=== PATIENT | female | born 1955 | race Hispanic/Latino ===

== ENCOUNTER 2016-06-11 22:02 | Emergency (ER) ==
[2016-06-11] MEDS ORDERED: NITROGLYCERIN SL PRN (22:40)
[2016-06-11] MEDS ORDERED: ASPIRIN PO STA (22:40)
[2016-06-11 22:51] LABS: MANUAL DIFF NEEDED? NO
[2016-06-11 22:55] LABS: BASO% 0.3 % (0.0-0.8); EOS# 0.18 X1000 (0.0-0.7); HEMATOCRIT 39.9 % (37.0-47.0); HEMOGLOBIN 12.9 g/dL (12.0-16.0); LYMPH# 4.24 X1000 (1.2-3.4); LYMPH% 47.1 % (20.5-51.1); MCH 24.5 PG (27-31); MCHC 32.3 g/dL (33-37); MCV 75.7 FL (81-99); MONO# 0.59 X1000 (0.11-0.59); MONO% 6.6 % (1.7-9.3); MPV 10.6 FL (7.4-10.4); PLT 218 X1000 (130-400); RBC 5.27 XMIL (4.2-5.4)
[2016-06-11 23:04] LABS: INR 1.01; PROTIME 10.7 Seconds (9.2-11.7); PTT 26.8 Seconds (22.0-36.0)
[2016-06-11 23:14] LABS: AGAP 14; ALBUMIN 3.9 g/dL (3.5-5.0); ALKALINE PHOSPHATASE 71 U/L (32-104); BUN 14 mg/dL (8-22); CALCIUM 9.3 mg/dL (8.8-10.2); CHLORIDE 104 mmol/L (98-107); CK PROFILE 95 U/L (24-173); COSMO 286; GOT 37 U/L (10-30); GPT 47 U/L (10-36); POTASSIUM 3.8 mmol/L (3.5-5.1); SODIUM 142 mmol/L (136-145); TCO2 24 mmol/L (25-35); TOTAL PROTEIN 6.9 g/dL (6.3-8.3)
[2016-06-11 23:53] VITALS: BP 141/78
--- NOTE | 2016-06-11 23:57 | PROVIDER DOCUMENTATION ---
Addendum entered and electronically signed by Jasmin Rodarte Scribe 06/12/16 00: 09: EKG Interpretation - EKG Time of EKG reading by physician:: 22:24 EKG Read and Signed by:: Sai Bob EKG Interpretation (*Must complete 3 of following elements*): Abnormal Rate: 77 Rhythm: NSR QRS: LBB Original Note: HPI-General Adult - General Chief Complaint: B/P Problems Stated Complaint: HIGH BP Time Seen by Provider: 06/11/16 23:43 Source: patient Allergies/Adverse Reactions: Patient Allergies Allergy/AdvReac Type Severity Reaction Status Date / Time No Known Allergies Allergy Verified 06/11/16 22:16 Home Medications: Home Medication List Medication Instructions Recorded Confirmed Last Taken Type Atenolol 1 tab PO DAILY 05/28/15 06/11/16 06/11/16 History Calcium Carb/Vitamin D3/Vit K1 1 tab PO DAILY 05/28/15 06/11/16 06/11/16 History [Calcium + D Soft Chewable Tab] Levothyroxine [Synthroid] 100 mcg PO DAILY 05/28/15 06/11/16 06/11/16 History Milk Thistle 200 mg PO DAILY 05/28/15 06/11/16 06/11/16 History [place]-3 Fatty Acids [Fish Oil] 1 cap PO DAILY 05/28/15 06/11/16 06/11/16 History Lorazepam [Ativan] 0.5 mg PO PRN PRN 06/11/16 06/11/16 06/11/16 History - History of Present Illness -Gen Adult Location of Pain/Injury: reports: head. denies: face, mouth, neck, chest, upper extremity, hand(s), abdomen, back, pelvis, genitalia, lower extremity, feet, upper body, lower body, generalized Pain Radiation: reports: no radiation Quality of Pain: reports: aching. denies: burning, cramping, dull, fullness, indigestion, pressure, sharp, stabbing, tearing, throbbing, tightness Severity: reports: moderate. denies: mild, severe Onset/Duration: reports: abrupt, 1-3 hours ago Timing: reports: gone now. denies: still present, improving, resolved prior to arrival, intermittent, constant, changing over time, getting worse Context/Activities at Onset: reports: none. denies: recent emotional stress, recent physical stress, recent trauma history, possible bad food, cold exposure , out of country travel Modifying Factors: improves with: nothing Associated Symptoms: reports: anxiety, headaches. denies: arm pain, back/neck pain, chest pain, constipation, cough, diaphoresis, diarrhea, dizziness, EENT symptoms, fatigue, fever/chills, genitourinary problems, heartburn, joint pain, loss of appetite, malaise, muscle aches, sinus congestion/drainage, nausea, rash , seizure, shortness of breath, sensory/motor loss, pain with inspiration, swelling/mass in abdomen, syncope, vomiting, weakness, trouble walking Similar Symptoms Previously?: Yes Recently seen or treated by another doctor?: No Review of Systems - Adult - REVIEW OF SYSTEMS - ADULT Constitutional: reports: see HPI. denies: chills, fever, fatique Eyes: reports: see HPI. denies: discharge, blurred vision, double vision Ears, Nose, Mouth & Throat: reports: see HPI. denies: ear discharge, ear pain, hearing loss, sinus problem, nose pain, loose teeth, mouth/dental pain, throat pain, throat swelling Cardiovascular: reports: see HPI. denies: chest pain, irregular heart rate, orthopnea, palpitations, syncope Respiratory: reports: see HPI. denies: chronic cough, cough, dyspnea on exertion, hemoptysis, shortness of breath, wheezing Gastrointestinal: reports: see HPI. denies: abdominal pain, hematemesis, diarrhea, nausea, vomiting Genitourinary: reports: see HPI. denies: dysuria, hematuria, hesitency, urgency Musculoskeletal: reports: see HPI. denies: bone pain, joint pain, joint swelling, neck pain Integumentary: reports: see HPI. denies: hives, itching, rash, skin thickening Neurological: reports: see HPI, headache/migraines. denies: ataxia, numbness, seizure, tremors Psychiatric: reports: see HPI, anxiety. denies: depression, emotional problems , insomnia, panic attacks, suicidal thoughts Past History - Adult - PAST MEDICAL HISTORY-ADULT Review of Records: reports: Old Records Reviewed, Nursing Assessment Review, Medications Reviewed, Social history reviewed & non-contributory. - IMMUNIZATION STATUS Childhood Immunizations: See Nurse Assessment Flu Vaccine: See Nurse Assessment - FAMILY HISTORY Family History: reviewed, not pertinent - SOCIAL HISTORY Smoking: non-smoker Physical Exam-General - PHYSICAL EXAM-ADULT Initial Vital Signs Reviewed: Yes - CONSTITUTIONAL General Appearance: alert, mild distress, thin, anxious. negative: obese, lethargic, slow to respond, obtunded, combative - EYES Eyes: PERRL/EOMI, pink conjunctivae. negative: conjuctival exudate, subconjunctival hemorrhage, sunken eyes - HEAD, EARS, NOSE, MOUTH & THROAT HENMT: normocephalic/atraumatic, moist mucous membranes. negative: angioedema, frontal tenderness, maxillary tenderness - NECK Neck: non-tender, full range of motion, supple, normal inspection. negative: lymphadenopathy, trachial deviation, thyromegaly - RESPIRATORY Respiratory: lungs clear, normal breath sounds. negative: crackles, rales, rhonchi, stridor, wheezing - CARDIOVASCULAR Cardiovascular: normal peripheral pulses, regular rate, rhythm, no edema, no JVD , no murmur. negative: extra beats, friction rub, irregularly irregular - CHEST (BREASTS) Chest/Breast: deferred - GASTROINTESTINAL (ABDOMEN) Abdominal Exam: normal bowel sounds, non tender, soft. negative: distended, guarding, rigid, rebound, tenderness, hernia, mass - GENITOURINARY Female Genitalia/Pelvic Exam: deferred Rectal Exam: deferred Hemoccult Exam: deferred - LYMPHATIC Lymphatic: no adenopathy. negative: axilla node tender, cervical node tenderness - MUSCULOSKELETAL Back Exam: normal inspection, no CVA tenderness, no vertebral tenderness. negative: ecchymosis, scoliosis, swelling, vertebral tenderness Extremity: normal range of motion, non-tender, normal gait, normal inspection. negative: deformity, erythema, inflammation, swelling, tenderness Peripheral Pulses: radial (R): 2+, radial (L): 2+ - SKIN Integumentary: normal color, normal turgor, warm/dry. negative: cyanosis, diaphoresis, ecchymosis, erythema, jaundice, mottled, pallor, petechiae, purpura , rash, swelling, tenderness - NEUROLOGIC Neurologic: grossly normal, no motor/sensory deficits. negative: aphasia, facial droop, focal weakness, motor weakness, sensory deficit - PSYCHIATRIC Psych/Mental Status: normal mood/affect, normal thought content, normal thought process, oriented x 3, anxious. negative: paranoid, tearful Progress - PLAN OF CARE/RESULTS Progress/Plan/Lab Results: Discussed results and plan of care with patient. Patient agrees with plan and verbalizes understanding. Vital Signs Temp Pulse Resp BP Pulse Ox 06/11/16 23:53 59 L 18 141/78 100 06/11/16 22:10 97.6 F 90 17 188/85 99 No Known Allergies Allergy (Verified 06/11/16 22:16) Atenolol 1 tab PO DAILY 05/28/15 Calcium Carb/Vitamin D3/Vit K1 [Calcium + D Soft Chewable Tab] 1 tab PO DAILY Levothyroxine [Synthroid] 100 mcg PO DAILY 05/28/15 Milk Thistle 200 mg PO DAILY 05/28/15 [place]-3 Fatty Acids [Fish Oil] 1 cap PO DAILY 05/28/15 Lorazepam [Ativan] 0.5 mg PO PRN PRN 06/11/16 Laboratory 06/11/16 06/11/16 06/11/16 22:35 22:35 22:35 WBC RBC Hgb Hct MCV MCH MCHC RDW Std Deviation Plt Count MPV Immature Gran % (Auto) Neut % (Auto) Lymph % (Auto) Wise % (Auto) Eos % (Auto) Baso % (Auto) Immature Gran # (Auto) Neut # (Auto) Lymph # (Auto) Wise # (Auto) Eos # (Auto) Baso # (Auto) PT 10.7 INR 1.01 PTT (Actin FS) 26.8 D-Dimer Sodium Potassium Chloride Carbon Dioxide Anion Gap BUN Creatinine Estimated GFR/1.73 m2 BUN/Creatinine Ratio Glucose Calculated Osmolality Calcium Magnesium Total Bilirubin AST ALT Alkaline Phosphatase Creatine Kinase Troponin T < 0.010 Oat-L-Vdwgpzflvon Pept 52 Total Protein Albumin Globulin Albumin/Globulin Ratio 06/11/16 06/11/16 06/11/16 22:35 22:35 22:35 WBC 9.00 RBC 5.27 Hgb 12.9 Hct 39.9 MCV 75.7 L MCH 24.5 L MCHC 32.3 L RDW Std Deviation 14.7 H Plt Count 218 MPV 10.6 H Immature Gran % (Auto) 0.0 Neut % (Auto) 44.0 Lymph % (Auto) 47.1 Wise % (Auto) 6.6 Eos % (Auto) 2.0 Baso % (Auto) 0.3 Immature Gran # (Auto) 0.00 Neut # (Auto) 3.96 Lymph # (Auto) 4.24 H Wise # (Auto) 0.59 Eos # (Auto) 0.18 Baso # (Auto) 0.03 PT INR PTT (Actin FS) D-Dimer 0.35 Sodium 142 Potassium 3.8 Chloride 104 Carbon Dioxide 24 L Anion Gap 14 BUN 14 Creatinine 0.8 Estimated GFR/1.73 m2 > 60 BUN/Creatinine Ratio 18 Glucose 150 H Calculated Osmolality 286 Calcium 9.3 Magnesium 2.0 Total Bilirubin 0.30 AST 37 H ALT 47 H Alkaline Phosphatase 71 Creatine Kinase 95 Troponin T Iug-A-Tfcdhqfyrww Pept Total Protein 6.9 Albumin 3.9 Globulin 3.0 Albumin/Globulin Ratio 1.3 Orders Category Date Time Status CHEST-2 VIEWS [RAD] Stat Exams 06/11/16 22:40 Taken CBC WITH ELECTRONIC DIFF [HEME] Stat Lab 06/11/16 22:35 Completed CK PROFILE [SP CHEM] Stat Lab 06/11/16 22:35 Completed COMPREHENSIVE METABOLIC PANEL [CHEM] Stat Lab 06/11/16 22:35 Completed D-DIMER [CHEM] Stat Lab 06/11/16 22:35 Completed MAGNESIUM [CHEM] Stat Lab 06/11/16 22:35 Completed PRO B-NATRIURETIC PEPTIDE Stat Lab 06/11/16 22:35 Completed PROTIME WITH INR [COAG] Stat Lab 06/11/16 22:35 Completed PTT [COAG] Stat Lab 06/11/16 22:35 Completed TROPONIN T Stat Lab 06/11/16 22:35 Completed Aspirin Med 06/11/16 22:40 Discontinued 325 mg PO STAT STA Nitroglycerin Sl [Nitroglycerin] Med 06/11/16 22:40 Active 0.4 mg SL Q5M PRN PRN EKG [EKG] Stat Ther 06/11/16 22:20 Ordered Laboratory Tests 06/11/16 06/11/16 06/11/16 22:35 22:35 22:35 WBC 9.00 RBC 5.27 Hgb 12.9 Hct 39.9 MCV 75.7 L MCH 24.5 L MCHC 32.3 L RDW Std Deviation 14.7 H Plt Count 218 MPV 10.6 H Immature Gran % (Auto) 0.0 Neut % (Auto) 44.0 Lymph % (Auto) 47.1 Wise % (Auto) 6.6 Eos % (Auto) 2.0 Baso % (Auto) 0.3 Immature Gran # (Auto) 0.00 Neut # (Auto) 3.96 Lymph # (Auto) 4.24 H Wise # (Auto) 0.59 Eos # (Auto) 0.18 Baso # (Auto) 0.03 PT INR PTT (Actin FS) D-Dimer 0.35 Sodium 142 Potassium 3.8 Chloride 104 Carbon Dioxide 24 L Anion Gap 14 BUN 14 Creatinine 0.8 Estimated GFR/1.73 m2 > 60 BUN/Creatinine Ratio 18 Glucose 150 H Calculated Osmolality 286 Calcium 9.3 Magnesium 2.0 Total Bilirubin 0.30 AST 37 H ALT 47 H Alkaline Phosphatase 71 Creatine Kinase 95 Troponin T Zth-E-Uhnxwiobszs Pept Total Protein 6.9 Albumin 3.9 Globulin 3.0 Albumin/Globulin Ratio 1.3 06/11/16 06/11/16 06/11/16 22:35 22:35 22:35 WBC RBC Hgb Hct MCV MCH MCHC RDW Std Deviation Plt Count MPV Immature Gran % (Auto) Neut % (Auto) Lymph % (Auto) Wise % (Auto) Eos % (Auto) Baso % (Auto) Immature Gran # (Auto) Neut # (Auto) Lymph # (Auto) Wise # (Auto) Eos # (Auto) Baso # (Auto) PT 10.7 INR 1.01 PTT (Actin FS) 26.8 D-Dimer Sodium Potassium Chloride Carbon Dioxide Anion Gap BUN Creatinine Estimated GFR/1.73 m2 BUN/Creatinine Ratio Glucose Calculated Osmolality Calcium Magnesium Total Bilirubin AST ALT Alkaline Phosphatase Creatine Kinase Troponin T < 0.010 Kqm-H-Kcnkakvatvx Pept 52 Total Protein Albumin Globulin Albumin/Globulin Ratio Departure - Departure Time of Disposition Order: 23:57 DIAGNOSIS: Anxiety Disposition: HOME 01 Certified Medical Emergency: Emergent Condition: Stable Additional Instructions: Follow up with primary care physician Return to ED for any concerns or worsening of symptoms ED Follow Up Instructions: You have been treated by a care provider in the Emergency Department. These instructions are being provided to you so you can have an understanding of how to care for yourself upon discharge. Upon discharge from the Emergency Department, you are responsible for making arrangements for follow-up care by a physician of your choice. Take all prescribed medications as directed. Return to the Emergency Department immediately for any new or worsening symptoms. You may call the Physician Referral phone number at [phone] to obtain a list of Physicians who are taking new patients. Attestation - Physician/ LETTY Attestation Patient care was provided by Advanced Practice Provider:: Yes Advanced Practice Provider:: Carisa Sawant Advanced Practice Provider documentation review:: The Mid-level provider documentation, treatment plan and medical decision making was reviewed by the physician who agrees with all treatment and medical decision making by the MLP.
--- NOTE | 2016-06-12 05:59 | EKG Report ---
Test Performed on : 06/11/2016 10:24:52 PM Test Reason : CHEST WALL PAIN Blood Pressure : / mmHG Vent. Rate : 077 BPM Atrial Rate : 077 BPM P-R Int : 194 ms QRS Dur : 142 ms QT Int : 434 ms P-R-T Axes : 075 -04 106 degrees QTc Int : 491 ms Normal sinus rhythm. Left bundle branch block Abnormal ECG No previous ECGs available Unconfirmed Result
--- NOTE | 2016-06-12 08:25 | Diag Imaging Result Document ---
PROCEDURE NAME: CHEST-2 VIEWS - 06/11/2016 FRONTAL AND LATERAL CHEST, TWO VIEWS: COMPARISON: No comparison films. FINDINGS: The lungs are well expanded. The heart is not enlarged. There is apical pleural thickening and scarring. The lg are retracted superiorly. No pleural effusions. No consolidation. IMPRESSION: Apical pleural thickening and fibrosis. If there are prior films elsewhere it would be beneficial to obtain them for comparison. If none are available then follow up films are recommended.
== END 2016-06-12 00:26 | disposition home or self-care (01) ==
LOC: ED 22:02
DX: F41.9 Anxiety disorder, unspecified (principal); R51 Headache; R94.31 Abnormal electrocardiogram [ECG] [EKG]; Z79.899 Other long term (current) drug therapy
CPT/HCPCS: 71020; 80053; 82550; 83735; 83880; 84484; 85025; 85379; 85610; 85730; 93005